=== PATIENT | female | born 1960 | race Caucasian/White ===

== ENCOUNTER → 2021-07-14 | Outpatient (CLI) | payer BC ==
[~2021-07-14] MED LIST: HYDACE5 PO; IBUP800 PO; META800 PO
[2021-07-14 15:52] LABS: BASOPHILS ABSOLUTE AUTO 0.02 K/mm3 (0.00-0.23); BASOPHILS PERCENT AUTO 1 % (0-2); EOSINOPHILS ABSOLUTE AUTO 0.21 K/mm3 (0.00-0.68); EOSINOPHILS PERCENT AUTO 5 % (0-6); Hematocrit 39.2 % (33.0-51.0); Hemoglobin 12.8 g/dL (11.5-16.0); IMMATURE GRAN ABSOLUTE AUTO 0.02 K/mm3 (0.00-0.10); IMMATURE GRAN PERCENT AUTO 1 % (0-1); LYMPHOCYTES PERCENT AUTO 30 % (21-46); MONOCYTES ABSOLUTE AUTO 0.47 K/mm3 (0.16-1.47); MONOCYTES PERCENT AUTO 11 % (4-13); Mean Corpuscular HGB 30.5 pg (26.0-34.0); Mean Corpuscular HGB Conc 32.7 g/dL (31.5-36.5); Mean Corpuscular Volume 93 fL (80-100); Mean Platelet Volume 9.2 fL (9.1-12.4); NEUTROPHILS ABSOLUTE AUTO 2.26 K/mm3 (1.96-9.15); NEUTROPHILS PERCENT AUTO 53 % (41-73); Platelet Count 204 K/mm3 (150-400); RDW Coefficient Variation 12.9 % (11.7-14.2); RDW Standard Deviation 44.1 fL (35.1-46.3); White Blood Cell Count 4.28 K/mm3 (4.00-11.30)
[2021-07-14 16:09] LABS: Alanine Aminotransfer (ALT/SGP 49 U/L (12-78); Albumin, Blood 3.9 g/dL (3.4-5.0); Albumin/Globulin Ratio 1.1 (0.8-1.8); Alk Phos 89 U/L (40-126); Anion Gap 8 mmol/L (6-16); Aspartate Aminotrans (AST/SGOT 29 U/L (12-37); Bilirubin, Total 0.3 mg/dL (0.1-1.0); Blood Urea Nitrogen 14 mg/dL (8-24); Bun/Creatinine Ratio 17.1 (12.0-20.0); CO2, Blood 28 mmol/L (21-32); Calcium, Blood 8.6 mg/dL (8.5-10.1); Chloride, Blood 103 mmol/L (98-108); Creatinine, Blood 0.82 mg/dL (0.40-1.00); Globulin, Blood 3.5 g/dL (2.2-4.0); Glomerular Filtration Rate >60 (60-); Glucose, Blood 102 mg/dL (70-99); Potassium, Blood 3.6 mmol/L (3.5-5.5); Sodium, Blood 139 mmol/L (136-145); Total Protein, Blood 7.4 g/dL (6.4-8.2)
== END ==
LOC: LAB SHORT 15:48
PROVIDERS: Physician Assistant
DX: R09.02 Hypoxemia (principal)
CPT/HCPCS: 80053; 85025; 85379

== ENCOUNTER 2022-08-30 08:22 | Day surgery (SDC) | payer OTHER ==
[~2022-08-30] VITALS: Ht 170.2 cm; Wt 82.9 kg
[2022-08-30] MEDS ORDERED: SKYRIZI PE150 MG/1 M (08:42)
[2022-08-30] MEDS ORDERED: ERGO400 (08:43)
[2022-08-30] MEDS ORDERED: MELO7.5 (08:43)
[2022-08-30] MEDS ORDERED: IBUP200 (08:43)
[2022-08-30] MEDS ORDERED: WOMEN MULTIVIT1 EAC1 (08:43)
[2022-08-30] MEDS ORDERED: ESOM20 (08:44)
[2022-08-30] MEDS ORDERED: MELA3 (08:44)
[2022-08-30] MEDS ORDERED: OMEGA-3 + VITA200 ML (08:45)
[2022-08-30] MEDS ORDERED: ACET325 (08:45)
[2022-08-30 11:14] VITALS: BP 144/89
== END 2022-08-30 10:44 | disposition home or self-care (01) ==
LOC: ORSCSDS 08:22
PROVIDERS: Internal Medicine Gastroenterology
PROC: 0DBP8ZX Excision of Rectum, Via Natural or Artificial Opening Endoscopic, Diagnostic (ICD-10-PCS; principal; 2022-08-30 09:30)
PROC: 0DBL8ZX Excision of Transverse Colon, Via Natural or Artificial Opening Endoscopic, Diagnostic (ICD-10-PCS; principal; 2022-08-30 09:30)
DX: Z12.11 Encounter for screening for malignant neoplasm of colon (principal); D12.3 Benign neoplasm of transverse colon; K63.5 Polyp of colon; K57.30 Diverticulosis of large intestine without perforation or abscess without bleeding; K64.8 Other hemorrhoids
CPT/HCPCS: 88305; J2704; J7120

== ENCOUNTER 2023-01-01 20:30 | Emergency (ER) | payer OTHER ==
[~2023-01-01] VITALS: Ht 167.6 cm; Wt 82.1 kg
[~2023-01-01 20:30] MED LIST changes: +ACET325; +ERGO400; +ESOM20; +IBUP200; +MELA3; +MELO7.5; +OMEGA-3 + VITA200 ML; +SKYRIZI PE150 MG/1 M; +WOMEN MULTIVIT1 EAC1
[2023-01-01 21:22] VITALS: BP 171/98
[2023-01-01] MEDS ORDERED: METHOTREXATE2.510 PO (21:29)
== END 2023-01-01 23:35 | disposition home or self-care (01) ==
LOC: ER 20:30
DX: S63.502A Unspecified sprain of left wrist, initial encounter (principal); S00.33XA Contusion of nose, initial encounter; S80.02XA Contusion of left knee, initial encounter; W18.30XA Fall on same level, unspecified, initial encounter; Z88.5 Allergy status to narcotic agent; Z79.899 Other long term (current) drug therapy
CPT/HCPCS: 70450; 73110; 73562-LT; 99284-25